=== PATIENT | female | born 1975 | race Caucasian/White ===

== ENCOUNTER 2019-02-09 20:51 | Emergency (ER) | payer SELFPAY ==
[2019-02-09 20:52] VITALS: BP 149/107; PULSE 108; RESP 18; TEMP 37.3; O2SAT 100
--- NOTE | 2019-02-09 20:59 | ED.NEUROSD ---
HPI - Neuro Symptoms/Deficit General Chief Complaint: Neuro Symptoms/Deficit Stated Complaint: Stroke Symptoms Time Seen by Provider: 02/09/19 20:57 Source: patient and EMS Mode of arrival: EMS Limitations: no limitations History of Present Illness HPI Narrative: 43F with history of autoimmune neurologic problems requiring hospitalizations and IVIG, also chronic inflammatory demyelinating polyneuropathy. Her last hospitalization was at [facility] earlier this year and she was admitted for 5 days of IVIG. Patient complains of a few weeks of gradually worsening symptoms per 48 hours of significant deterioration and now she can no longer ambulate is having trouble speaking. She typically has bilateral weakness, tingling but today her right arm and right leg are profoundly weak, this is classic for her prior exacerbations. She has had no injury nor any fever or chills. She denies recent upper respiratory infections such as runny nose, sore throat or cough Onset (ago): day(s) Location: speech, right arm and right leg History of same: Yes Severity: moderate Quality: weak, numb and tingling Relieving factors: none Exacerbating factors: none Context: gradual onset On Anticoagulants: No Associated symptoms: denies other symptoms Treatments Prior to Arrival: none Related Data Allergies Allergy/AdvReac Type Severity Reaction Status Date / Time No Known Drug Allergies Allergy Verified 02/09/19 20:54 Review of Systems Constitutional Denies chills, Denies fever(s), Denies lethargy and Reports weakness Eyes Denies change in vision, Denies eye discharge, Denies irritation and Denies loss of vision ENT Ears, Nose, Mouth, and Throat: Denies change in voice, Denies neck pain and Denies sore throat Cardiovascular Denies chest pain, Denies irregular heart rhythm, Denies lightheadedness, Denies palpitations, Denies dyspnea, Denies dyspnea on exertion and Denies orthopnea Respiratory Denies cough, Denies dyspnea, Denies dyspnea on exertion and Denies wheezing Gastrointestinal Gastrointestinal: Denies abdominal pain, Denies change in bowel habits, Denies diarrhea, Denies nausea and Denies vomiting Genitourinary Denies hematuria, Denies flank pain, Denies urinary incontinence and Denies urinary urgency Musculoskeletal Denies neck pain Integumentary/Breasts Denies pruritus, Denies erythema, Denies rash and Denies wounds Neurologic Denies confusion, Denies loss of vision and Reports weakness Psychiatric Denies anxiety, Denies confusion, Denies depression, Denies homicidal ideation and Denies suicidal ideation Endocrine Denies palpitations Hematologic/Lymphatic Denies easy bruising Allergic/Immunologic Denies wheezing [facility] Medical History (Updated 02/10/19 @ 04:51 by Cheko Ashby DO) Alcoholism (Acute) 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 HEAD: Atraumatic. Normocephalic. No temporal or scalp tenderness. EYES: Pupils equal round and reactive. Extraocular motions intact. No scleral icterus. No injection or drainage. ENT: Nose without bleeding, purulent drainage or septal hematoma. Throat without erythema, tonsillar hypertrophy or exudate. Uvula midline. Airway patent. NECK: Trachea midline. No JVD or lymphadenopathy. Supple, nontender, no meningeal signs. CARDIOVASCULAR: Regular rate and rhythm without murmurs, gallops, or rubs. RESPIRATORY: Clear to auscultation. Breath sounds equal bilaterally. No wheezes, rales, or rhonchi. GASTROINTESTINAL: Abdomen soft, non-tender, nondistended. No hepato-splenomegaly, or palpable masses. No guarding. EXTREMITIES: No clubbing, cyanosis, or edema. No joint tenderness, effusion, or edema noted. BACK: Nontender without deformity or crepitance. No flank tenderness. SKIN: No rash or erythema. Initial Vital Signs Initial Vital Signs: Vital Signs Temperature 99.1 F 02/09/19 20:52 Pulse Rate 108 H 02/09/19 20:52 Respiratory Rate 18 02/09/19 20:52 Blood Pressure 149/107 H 02/09/19 20:52 Pulse Oximetry 100 02/09/19 20:52 Scores NIH Stroke Scale Level of Conciousness: Alert, keenly responsive Ask month/age: Answers both questions correctly. Open/close eyes, close hand: Performs both tasks correctly Best gaze horizontal: Normal Visual ortiz: No visual loss Facial palsy: Partial paralysis, total or near total paralysis of lower face Left arm drift: No drift for full 10 sec Right arm drift: Drifts down, not to bed Left leg drift: No drift for full 10 sec Right leg drift: Drifts down, not to bed Limb ataxia: Absent Sensory on face/arms/legs: Mild to moderate sensory loss, can tell touch Best language: No aphasia, normal Dysarthria: Mild to mod,some slurring Extinction or inattention: No abnormality Total NIH Stroke scale score: 6 Course Orders Ordered: ED Orders 02/09/19 21:08 CT head/brain wo con Stat 02/09/19 21:35 C-Reactive Protein Quant Stat Complete Blood Count AUTO DIFF Stat Comprehensive Metabolic Panel Stat Erythrocyte Sedimentation Rate Stat Partial Thromboplastin Time Stat Prothrombin Time INR Stat 02/09/19 23:50 Ethanol (ETOH) Stat Discontinued Medications Sodium Chloride (Normal Saline 0.9%) 1,000 mls @ 1,000 mls/hr IV BOLUS ONE Stop: 02/09/19 22:05 Last Infusion: 02/10/19 00:14 Dose: 0 mls/hr Admin: 02/09/19 21:41 Dose: 1,000 mls/hr Reevaluation(s) Reevaluation #1: patient resting comfortably Consultations Consultation #1: call to [facility]. No consistant neuro coverage. Hospitalist not comfortable with transfer Consultation #2: call to Dr. Doe (Neuro at [facility]) happy to accept transfer. No recommendations for meds to administer here. Vital Signs - 8 hr 02/10/19 01:14 02/10/19 03:57 02/10/19 05:16 Temperature 99.1 F Pulse Rate 84 83 81 Respiratory Rate 16 Blood Pressure [Left Arm] 112/81 124/78 124/81 Pulse Oximetry 98 97 98 MDM - Neuro Symptoms/Deficit Lab Data Result diagrams: 02/09/19 21:35 02/09/19 21:35 Lab Results 02/09/19 02/09/19 02/09/19 Range/Units 21:35 21:35 21:35 WBC 4.6 (4.5-11.0) X10^3/uL RBC 4.24 (4.0-5.2) X10^6/uL Hgb 14.2 (12.0-16.0) g/dL Hct 42.6 (36-46) % MCV 100.5 H (80-100) fL MCH 33.5 (26-34) PG MCHC 33.3 (30-36) % RDW 12.9 (11.6-14.8) % Plt Count 270 (150-400) X10^3/uL Neut % (Auto) 45.5 L (50-75) % Lymph % (Auto) 41.0 H (25-40) % [place] % (Auto) 10.4 (3-14) % Eos % (Auto) 2.6 (2-4) % Baso % (Auto) 0.5 (0-2) % Neut # (Auto) 2100 (2857-6591) /uL Lymph # (Auto) 1900 (2678-3677) /uL [place] # (Auto) 500 (0-900) /uL Eos # (Auto) 100 (0-450) /uL Baso # (Auto) 0 (0-100) /uL ESR 6 (0-20) MM/HR PT 11.2 (10.1-12.7) SECONDS INR 1.0 (0.9-1.3) APTT 32 (26.4-36.2) SECONDS Sodium 143 (137-145) mmol/L Potassium 3.8 (3.4-5.1) mmol/L Chloride 106 (98-107) mmol/L Carbon Dioxide 25 (22-32) mmol/L BUN 7 (7-17) mg/dL Creatinine 0.70 (0.52-1.04) mg/dL Estimated GFR > 60.0 (>60) mL/min BUN/Creatinine Ratio 10.0 (6-22) Glucose 96 (70-100) mg/dL Calcium 8.3 L (8.4-10.2) mg/dL Total Bilirubin 0.2 (0.2-1.3) mg/dL AST 26 (14-36) IU/L ALT 23 (9-52) IU/L Alkaline Phosphatase 56 (38-126) U/L C-Reactive Protein < 0.5 (<1.0) mg/dL Total Protein 7.5 (6.3-8.2) g/dL Albumin 4.5 (3.5-5.0) g/dL Globulin 3.0 (1.7-4.1) g/dL Albumin/Globulin Ratio 1.5 (1.0-2.8) Ethyl Alcohol mg/dL 02/10/19 Range/Units 00:25 WBC (4.5-11.0) X10^3/uL RBC (4.0-5.2) X10^6/uL Hgb (12.0-16.0) g/dL Hct (36-46) % MCV (80-100) fL MCH (26-34) PG MCHC (30-36) % RDW (11.6-14.8) % Plt Count (150-400) X10^3/uL Neut % (Auto) (50-75) % Lymph % (Auto) (25-40) % [place] % (Auto) (3-14) % Eos % (Auto) (2-4) % Baso % (Auto) (0-2) % Neut # (Auto) (4484-3111) /uL Lymph # (Auto) (5207-1052) /uL [place] # (Auto) (0-900) /uL Eos # (Auto) (0-450) /uL Baso # (Auto) (0-100) /uL ESR (0-20) MM/HR PT (10.1-12.7) SECONDS INR (0.9-1.3) APTT (26.4-36.2) SECONDS Sodium (137-145) mmol/L Potassium (3.4-5.1) mmol/L Chloride (98-107) mmol/L Carbon Dioxide (22-32) mmol/L BUN (7-17) mg/dL Creatinine (0.52-1.04) mg/dL Estimated GFR (>60) mL/min BUN/Creatinine Ratio (6-22) Glucose (70-100) mg/dL Calcium (8.4-10.2) mg/dL Total Bilirubin (0.2-1.3) mg/dL AST (14-36) IU/L ALT (9-52) IU/L Alkaline Phosphatase (38-126) U/L C-Reactive Protein (<1.0) mg/dL Total Protein (6.3-8.2) g/dL Albumin (3.5-5.0) g/dL Globulin (1.7-4.1) g/dL Albumin/Globulin Ratio (1.0-2.8) Ethyl Alcohol 133 mg/dL MDM Narrative Medical decision making narrative: 43-year-old female with clumps plaques medical history and admitting diagnosis requiring medications and specialty not available at our hospital. She will require transfer for ongoing treatment and management of her illness Critical Care Time Critical Care Time: Yes Total Critical Care Time: 30 Attestation: The high probability of a clinically significant, sudden or life threatening deterioration of the [neurologic] system(s) required my full and direct attention, intervention and personal management. The aggregate critical care time was [30] minutes. This time is in addition to time spent performing reported procedures but includes the following: [x] Data Review and interpretation [x] Patient assessment and monitoring of vital signs [x] Documentation [x] Medication orders and management Discharge Plan Departure Patient Disposition: [facility] Clinical Impression: Chronic inflammatory demyelinating neuropathy
--- NOTE | 2019-02-09 21:08 | DI.CT.S_ITS ---
PROCEDURE: CT HEAD/BRAIN WO CON INDICATIONS: weakness, face, R side extremities TECHNIQUE: Noncontrast 4.5 mm thick angled axial sections acquired from the foramen magnum to the vertex, with coronal and sagittal reformats. For radiation dose reduction, the following was used: automated exposure control, adjustment of mA and/or kV according to patient size. COMPARISON: None. FINDINGS: Image quality: Excellent. CSF spaces: Basal cisterns are patent. No extra-axial fluid collections. Ventricles are normal in size and shape. Brain: No midline shift. No intracranial masses or hemorrhage. Larose-white matter interface is normal. Skull and face: Calvarium and visualized facial bones are intact, without suspicious lesions. Sinuses: Visualized sinuses and mastoids are clear. IMPRESSION: CT head without acute intracranial abnormalities. Dictated by: Ronak Landa M.D. on 02/09/2019 at 21:31 Approved by: Ronak Landa M.D. on 02/09/2019 at 21:32
[2019-02-09] MEDS: SODIUM CHLORIDE 0.9% 1,000 ML 1000 ML IV (21:41)
[2019-02-09 21:45] LABS: Add Manual Diff / Slide Review NO; Basophils Absolute Auto 0 /uL (0-100); Basophils Percent Auto 0.5 % (0-2); Eosinophils Absolute Auto 100 /uL (0-450); Eosinophils Percent Auto 2.6 % (2-4); Hematocrit 42.6 % (36-46); Hemoglobin 14.2 g/dL (12.0-16.0); Lymphocytes Absolute Auto 1900 /uL (1100-4500); Mean Corpuscular HGB Conc 33.3 % (30-36); Mean Corpuscular Hemoglobin 33.5 PG (26-34); Mean Corpuscular Volume 100.5 fL (80-100); Monocytes Absolute Auto 500 /uL (0-900); Monocytes Percent Auto 10.4 % (3-14); Neutrophils Absolute Auto 2100 /uL (1500-7000); Neutrophils Percent Auto 45.5 % (50-75); Platelet Count 270 X10^3/uL (150-400); Red Blood Cell Count 4.24 X10^6/uL (4.0-5.2); Red Cell Distribution Width 12.9 % (11.6-14.8); White Blood Cell Count 4.6 X10^3/uL (4.5-11.0)
[2019-02-09 21:51] LABS: Prothrombin Time 11.2 SECONDS (10.1-12.7)
[2019-02-09 21:54] LABS: PTT Partial Thromboplastin Tim 32 SECONDS (26.4-36.2)
[2019-02-09 21:58] LABS: Alanine Aminotransferase 23 IU/L (9-52); Albumin 4.5 g/dL (3.5-5.0); Albumin Globulin Ratio 1.5 (1.0-2.8); Alkaline Phosphatase 56 U/L (38-126); Aspartate Aminotransferase 26 IU/L (14-36); Bilirubin Total 0.2 mg/dL (0.2-1.3); Blood Urea Nitrogen 7 mg/dL (7-17); C-Reactive Protein Quant < 0.5 mg/dL (<1.0); Calcium 8.3 mg/dL (8.4-10.2); Carbon Dioxide 25 mmol/L (22-32); Chloride 106 mmol/L (98-107); Estimated Glomerular Filt Rate > 60.0 mL/min (>60); Glucose 96 mg/dL (70-100); HEMOLYSIS < 15 (0-50); Potassium 3.8 mmol/L (3.4-5.1); Sodium 143 mmol/L (137-145); Total Protein 7.5 g/dL (6.3-8.2)
[2019-02-09 22:03] LABS: Erythrocyte Sedimentation Rate 6 MM/HR (0-20)
[2019-02-10 00:43] LABS: Ethanol (ETOH) 133 mg/dL
--- NOTE | 2019-02-10 00:51 | ED_ITS ---
HPI - Neuro Symptoms/Deficit General Chief Complaint: Neuro Symptoms/Deficit Stated Complaint: Stroke Symptoms Time Seen by Provider: 02/09/19 20:57 Source: patient and EMS Mode of arrival: EMS Limitations: no limitations History of Present Illness HPI Narrative: 43F with history of autoimmune neurologic problems requiring hospitalizations and IVIG, also chronic inflammatory demyelinating polyneuropathy. Her last hospitalization was at [facility] earlier this year and she was admitted for 5 days of IVIG. Patient complains of a few weeks of gradually worsening symptoms per 48 hours of significant deterioration and now she can no longer ambulate is having trouble speaking. She typically has bilateral weakness, tingling but today her right arm and right leg are profoundly weak, this is classic for her prior exacerbations. She has had no injury nor any fever or chills. She denies recent upper respiratory infections such as runny nose, sore throat or cough Onset (ago): day(s) Location: speech, right arm and right leg History of same: Yes Severity: moderate Quality: weak, numb and tingling Relieving factors: none Exacerbating factors: none Context: gradual onset On Anticoagulants: No Associated symptoms: denies other symptoms Treatments Prior to Arrival: none Related Data Allergies Allergy/AdvReac Type Severity Reaction Status Date / Time No Known Drug Allergies Allergy Verified 02/09/19 20:54 Review of Systems Constitutional Denies chills, Denies fever(s), Denies lethargy and Reports weakness Eyes Denies change in vision, Denies eye discharge, Denies irritation and Denies loss of vision ENT Ears, Nose, Mouth, and Throat: Denies change in voice, Denies neck pain and Denies sore throat Cardiovascular Denies chest pain, Denies irregular heart rhythm, Denies lightheadedness, Denies palpitations, Denies dyspnea, Denies dyspnea on exertion and Denies orthopnea Respiratory Denies cough, Denies dyspnea, Denies dyspnea on exertion and Denies wheezing Gastrointestinal Gastrointestinal: Denies abdominal pain, Denies change in bowel habits, Denies diarrhea, Denies nausea and Denies vomiting Genitourinary Denies hematuria, Denies flank pain, Denies urinary incontinence and Denies urinary urgency Musculoskeletal Denies neck pain Integumentary/Breasts Denies pruritus, Denies erythema, Denies rash and Denies wounds Neurologic Denies confusion, Denies loss of vision and Reports weakness Psychiatric Denies anxiety, Denies confusion, Denies depression, Denies homicidal ideation and Denies suicidal ideation Endocrine Denies palpitations Hematologic/Lymphatic Denies easy bruising Allergic/Immunologic Denies wheezing [facility] Medical History (Updated 02/10/19 @ 04:51 by Cheko Ashby DO) Alcoholism (Acute) 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 HEAD: Atraumatic. Normocephalic. No temporal or scalp tenderness. EYES: Pupils equal round and reactive. Extraocular motions intact. No scleral icterus. No injection or drainage. ENT: Nose without bleeding, purulent drainage or septal hematoma. Throat without erythema, tonsillar hypertrophy or exudate. Uvula midline. Airway patent. NECK: Trachea midline. No JVD or lymphadenopathy. Supple, nontender, no me ningeal signs. CARDIOVASCULAR: Regular rate and rhythm without murmurs, gallops, or rubs. RESPIRATORY: Clear to auscultation. Breath sounds equal bilaterally. No wheezes, rales, or rhonchi. GASTROINTESTINAL: Abdomen soft, non-tender, nondistended. No hepato- splenomegaly, or palpable masses. No guarding. EXTREMITIES: No clubbing, cyanosis, or edema. No joint tenderness, effusion, or edema noted. BACK: Nontender without deformity or crepitance. No flank tenderness. SKIN: No rash or erythema. Initial Vital Signs Initial Vital Signs: Vital Signs Temperature 99.1 F 02/09/19 20:52 Pulse Rate 108 H 02/09/19 20:52 Respiratory Rate 18 02/09/19 20:52 Blood Pressure 149/107 H 02/09/19 20:52 Pulse Oximetry 100 02/09/19 20:52 Scores NIH Stroke Scale Level of Conciousness: Alert, keenly responsive Ask month/age: Answers both questions correctly. Open/close eyes, close hand: Performs both tasks correctly Best gaze horizontal: Normal Visual ortiz: No visual loss Facial palsy: Partial paralysis, total or near total paralysis of lower face Left arm drift: No drift for full 10 sec Right arm drift: Drifts down, not to bed Left leg drift: No drift for full 10 sec Right leg drift: Drifts down, not to bed Limb ataxia: Absent Sensory on face/arms/legs: Mild to moderate sensory loss, can tell touch Best language: No aphasia, normal Dysarthria: Mild to mod,some slurring Extinction or inattention: No abnormality Total NIH Stroke scale score: 6 Course Orders Ordered: ED Orders 02/09/19 21:08 CT head/brain wo con Stat 02/09/19 21:35 C-Reactive Protein Quant Stat Complete Blood Count AUTO DIFF Stat Comprehensive Metabolic Panel Stat Erythrocyte Sedimentation Rate Stat Partial Thromboplastin Time Stat Prothrombin Time INR Stat 02/09/19 23:50 Ethanol (ETOH) Stat Discontinued Medications Sodium Chloride (Normal Saline 0.9%) 1,000 mls @ 1,000 mls/hr IV BOLUS ONE Stop: 02/09/19 22:05 Last Infusion: 02/10/19 00:14 Dose: 0 mls/hr Admin: 02/09/19 21:41 Dose: 1,000 mls/hr Reevaluation(s) Reevaluation #1: patient resting comfortably Consultations Consultation #1: call to [facility]. No consistant neuro coverage. Hospitalist not comfortable with transfer Consultation #2: call to Dr. Doe (Neuro at [facility]) happy to accept transfer. No recommendations for meds to administer here. Vital Signs - 8 hr 02/10/19 01:14 02/10/19 03:57 02/10/19 05:16 Temperature 99.1 F Pulse Rate 84 83 81 Respiratory Rate 16 Blood Pressure [Left Arm] 112/81 124/78 124/81 Pulse Oximetry 98 97 98 MDM - Neuro Symptoms/Deficit Lab Data Result diagrams: 02/09/19 21:35 02/09/19 21:35 Lab Results 02/09/19 02/09/19 02/09/19 Range/Units 21:35 21:35 21:35 WBC 4.6 (4.5-11.0) X10^3/uL RBC 4.24 (4.0-5.2) X10^6/uL Hgb 14.2 (12.0-16.0) g/dL Hct 42.6 (36-46) % MCV 100.5 H (80-100) fL MCH 33.5 (26-34) PG MCHC 33.3 (30-36) % RDW 12.9 (11.6-14.8) % Plt Count 270 (150-400) X10^3/uL Neut % (Auto) 45.5 L (50-75) % Lymph % (Auto) 41.0 H (25-40) % [place] % (Auto) 10.4 (3-14) % Eos % (Auto) 2.6 (2-4) % Baso % (Auto) 0.5 (0-2) % Neut # (Auto) 2100 (6588-5633) /uL Lymph # (Auto) 1900 (2670-3152) /uL [place] # (Auto) 500 (0-900) /uL Eos # (Auto) 100 (0-450) /uL Baso # (Auto) 0 (0-100) /uL ESR 6 (0-20) MM/HR PT 11.2 (10.1-12.7) SECONDS INR 1.0 (0.9-1.3) APTT 32 (26.4-36.2) SECONDS Sodium 143 (137-145) mmol/L Potassium 3.8 (3.4-5.1) mmol/L Chloride 106 (98-107) mmol/L Carbon Dioxide 25 (22-32) mmol/L BUN 7 (7-17) mg/dL Creatinine 0.70 (0.52-1.04) mg/dL Estimated GFR > 60.0 (>60) mL/min BUN/Creatinine Ratio 10.0 (6-22) Glucose 96 (70-100) mg/dL Calcium 8.3 L (8.4-10.2) mg/dL Total Bilirubin 0.2 (0.2-1.3) mg/dL AST 26 (14-36) IU/L ALT 23 (9-52) IU/L Alkaline Phosphatase 56 (38-126) U/L C-Reactive Protein < 0.5 (<1.0) mg/dL Total Protein 7.5 (6.3-8.2) g/dL Albumin 4.5 (3.5-5.0) g/dL Globulin 3.0 (1.7-4.1) g/dL Albumin/Globulin Ratio 1.5 (1.0-2.8) Ethyl Alcohol mg/dL 02/10/19 Range/Units 00:25 WBC (4.5-11.0) X10^3/uL RBC (4.0-5.2) X10^6/uL Hgb (12.0-16.0) g/dL Hct (36-46) % MCV (80-100) fL MCH (26-34) PG MCHC (30-36) % RDW (11.6-14.8) % Plt Count (150-400) X10^3/uL Neut % (Auto) (50-75) % Lymph % (Auto) (25-40) % [place] % (Auto) (3-14) % Eos % (Auto) (2-4) % Baso % (Auto) (0-2) % Neut # (Auto) (9117-8747) /uL Lymph # (Auto) (7938-9413) /uL [place] # (Auto) (0-900) /uL Eos # (Auto) (0-450) /uL Baso # (Auto) (0-100) /uL ESR (0-20) MM/HR PT (10.1-12.7) SECONDS INR (0.9-1.3) APTT (26.4-36.2) SECONDS Sodium (137-145) mmol/L Potassium (3.4-5.1) mmol/L Chloride (98-107) mmol/L Carbon Dioxide (22-32) mmol/L BUN (7-17) mg/dL Creatinine (0.52-1.04) mg/dL Estimated GFR (>60) mL/min BUN/Creatinine Ratio (6-22) Glucose (70-100) mg/dL Calcium (8.4-10.2) mg/dL Total Bilirubin (0.2-1.3) mg/dL AST (14-36) IU/L ALT (9-52) IU/L Alkaline Phosphatase (38-126) U/L C-Reactive Protein (<1.0) mg/dL Total Protein (6.3-8.2) g/dL Albumin (3.5-5.0) g/dL Globulin (1.7-4.1) g/dL Albumin/Globulin Ratio (1.0-2.8) Ethyl Alcohol 133 mg/dL MDM Narrative Medical decision making narrative: 43-year-old female with clumps plaques medical history and admitting diagnosis requiring medications and specialty not available at our hospital. She will require transfer for ongoing treatment and management of her illness Critical Care Time Critical Care Time: Yes Total Critical Care Time: 30 Attestation: The high probability of a clinically significant, sudden or life threatening deterioration of the [neurologic] system(s) required my full and direct attention, intervention and personal management. The aggregate critical care time was [30] minutes. This time is in addition to time spent performing reported procedures but includes the following: [x] Data Review and interpretation [x] Patient assessment and monitoring of vital signs [x] Documentation [x] Medication orders and management Discharge Plan Departure Patient Disposition: [facility] Clinical Impression: Chronic inflammatory demyelinating neuropathy
[2019-02-10 01:14] VITALS: BP 112/81; PULSE 84; RESP 16; TEMP 37.3; O2SAT 98
[2019-02-10 03:57] VITALS: BP 124/78; PULSE 83; O2SAT 97
[2019-02-10 05:16] VITALS: BP 124/81; PULSE 81; O2SAT 98
[2019-02-10 06:36] VITALS: BP 135/84; PULSE 89; RESP 16; O2SAT 97
[2019-02-10 06:38] LABS: RBC Urine None Seen (0-5/HPF)
[2019-02-10 06:43] LABS: Appearance Urine UA SL CLOUDY; Bilirubin Urine UA NEGATIVE (NEGATIVE); Color Urine UA YELLOW; Glucose Urine UA NEGATIVE (Negative); Ketones Urine UA TRACE (NEGATIVE); Leukocyte Esterase Urine UA NEGATIVE (NEGATIVE); Nitrite Urine UA POSITIVE (Negative); Occult Blood Urine UA TRACE-LYSED (Negative); Protein Urine UA NEGATIVE (Negative); Specific Gravity Urine UA >=1.030 (1.000-1.035); Urobilinogen Urine UA 0.2 E.U./dL (0.2); pH Urine UA 5.5 (4.5-8.0)
[2019-02-10 06:47] LABS: Urine Amphetamines Negative (Negative); Urine Barbiturates Negative (Negative); Urine Benzodiazepines Negative (Negative); Urine Cocaine Positive (Negative); Urine MDMA Negative (Negative); Urine Methadone Negative (Negative); Urine Methamphetamines Negative (Negative); Urine Morphine/Opi cutoff 2000 Negative (Negative); Urine Oxycodone Negative (Negative); Urine Phencyclidine Negative (Negative); Urine Tetrahydrocannabinol Negative (Negative); Urine Tricyclic Antidepressant Negative (Negative)
[2019-02-10 06:49] LABS: Bacteria Urine Many (>30); Culture Indicated Urine Specimen Cultured; WBC Urine 0-1/HPF (0-5/HPF)
[2019-02-10 09:30] VITALS: BP 144/89; PULSE 87; RESP 14; O2SAT 98
[2019-02-10 10:58] VITALS: BP 132/80; PULSE 72; RESP 12; O2SAT 98
== END 2019-02-10 10:59 | disposition short-term general hospital (02) ==
PROVIDERS: Emergency Provider Emergency Medicine
DX: G61.81 Chronic inflammatory demyelinating polyneuritis (principal); R47.89 Other speech disturbances
CPT/HCPCS: 36415; 36591; 70450; 80053; 80305; 80320; 81001; 85025; 85610; 85651; 85730; 86140; 87077; 87086; 87186; 96360; 96361; 99284

== ENCOUNTER 2019-07-13 01:05 | Emergency (ER) | payer SELFPAY ==
[2019-07-13 01:10] VITALS: BP 140/85; PULSE 85; RESP 22; TEMP 36.8; O2SAT 99
--- NOTE | 2019-07-13 01:19 | DI.RAD.S_ITS ---
PROCEDURE: XR SHOULDER LT 1V INDICATIONS: Deformity after trauma - left shoulder TECHNIQUE: 1 views of the shoulder were acquired. COMPARISON: None. FINDINGS: Bones: There is a comminuted fracture evident involving the greater tuberosity of the humeral head with inferior (and also likely anterior) dislocation of the humeral head. The inferior glenoid is not adequately evaluated. No additional fractures are appreciated. No suspicious osseous lesions are evident. Soft tissues: No suspicious soft tissue calcifications. IMPRESSION: Inferior (and also likely anterior) dislocation of the humeral head with associated comminuted greater tuberosity fracture. CT would be helpful to exclude the possibility of a bony [place] fracture of the glenoid. Note: The preliminary ED physician interpretation and the final report are concordant. Dictated by: Ludwin Heart M.D. on 07/13/2019 at 7:17 Approved by: Ludwin Heart M.D. on 07/13/2019 at 7:18
--- NOTE | 2019-07-13 01:21 | DI.CT.S_ITS ---
PROCEDURE: CT HEAD/BRAIN WO CON INDICATIONS: Trauma left-sided facial wounds TECHNIQUE: Noncontrast 4.5 mm thick angled axial sections acquired from the foramen magnum to the vertex, with coronal and sagittal reformats. For radiation dose reduction, the following was used: automated exposure control, adjustment of mA and/or kV according to patient size. COMPARISON: [facility], CT, CT FACIAL BONES WO CON, 07/13/2019, 1:32. [facility], CT, CT BRAIN WO CON, 06/26/2017, 23:05. FINDINGS: Image quality: Excellent. CSF spaces: Basal cisterns are patent. No extra-axial fluid collections. A small area of increased attenuation is identified within the subarachnoid region along the inferior margin of the left frontal lobe (image 17, series 4 and image 29, series 2). Ventricles are normal in size and shape. Brain: No midline shift. No intracranial masses or hemorrhage. Larose-white matter interface is normal. Skull and face: Calvarium and visualized facial bones are intact, without suspicious lesions. A large area of soft tissue swelling is identified overlying the left forehead and periorbital region. The fracture involving the lateral wall of the left orbit is present. There also appears to be a subtle fracture involving the left temporal bone near the posterior margin of the zygomatic arch. Otherwise, calvarium and imaged facial bones are intact. Sinuses: Visualized sinuses and mastoids are clear. IMPRESSION: 1. Probable small subarachnoid hemorrhage along the inferior left frontal lobe. 2. Prominent soft tissue swelling overlying the left face. 3. Comminuted lateral orbital wall fracture on the left with an associated additional left temporal bone fracture. Note: The preliminary report provided by [facility]. is concordant with the final report. Dictated by: Ludwin Heart M.D. on 07/13/2019 at 7:20 Approved by: Ludwin Heart M.D. on 07/13/2019 at 7:25
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
--- NOTE | 2019-07-13 01:21 | DI.CT.S_ITS ---
PROCEDURE: CT CERVICAL SPINE WO CON INDICATIONS: Trauma TECHNIQUE: Noncontrast 3 mm thick sections acquired from the skull base to the T4 level. Sagittal and coronal reformats were then constructed. For radiation dose reduction, the following was used: automated exposure control, adjustment of mA and/or kV according to patient size. COMPARISON: [facility], CT, CT FACE WO CON, 06/26/2017, 23:05. FINDINGS: Image quality: Diagnostic. Bones: The craniocervical, atlantoaxial, and cervicothoracic junctions are well-maintained. The odontoid is intact. There is no displaced fracture or dislocation of the cervical spine. No suspicious osseous lesions are identified. Normal bony alignment of the cervical spine is present. There mild degenerative changes of the cervical spine with areas of mild disc height loss and possible early facet arthrosis. No spondylolisthesis is evident. (Incidental note is made of a fracture involving the left orbital wall and a subtle fracture involving the temporal bone along the posterior aspect of the zygomatic arch that extends into the temporal mandibular joint. Soft tissues: Prevertebral soft tissues are normal in thickness. No paravertebral hematomas. No apical pneumothoraces. IMPRESSION: 1. No acute fracture of the cervical spine. 2. Mild degenerative changes of the cervical spine. Note: The preliminary report provided by [facility] is concordant with the final report. Dictated by: Ludwin Heart M.D. on 07/13/2019 at 7:29 Approved by: Ludwin Heart M.D. on 07/13/2019 at 7:33
--- NOTE | 2019-07-13 01:22 | DI.RAD.S_ITS ---
PROCEDURE: XR CHEST 1V INDICATIONS: Trauma TECHNIQUE: One view of the chest was acquired. COMPARISON: None. FINDINGS: Surgical changes and devices: None. Lungs and pleura: Lungs are clear. No pleural effusions or pneumothorax. Mediastinum: Mediastinal contours appear normal. Heart size is normal. Bones and chest wall: No suspicious bony lesions. There is a comminuted a fracture involving the greater tuberosity of the humeral head with anterior dislocation of the humeral head with respect to the glenoid. Overlying soft tissues appear unremarkable. IMPRESSION: 1. No acute cardiopulmonary process. 2. Comminuted fracture of the left humeral head. Dictated by: Ludwin Heart M.D. on 07/13/2019 at 7:18 Approved by: Ludwin Heart M.D. on 07/13/2019 at 7:19
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
[2019-07-13 01:35] LABS: Prothrombin Time 11.5 SECONDS (10.1-12.7)
[2019-07-13 01:38] LABS: PTT Partial Thromboplastin Tim 31 SECONDS (26.4-36.2)
[2019-07-13 01:42] LABS: Pregnancy Test Serum,Qual Negative (Negative)
[2019-07-13 01:43] LABS: Alanine Aminotransferase 20 IU/L (9-52); Albumin 4.5 g/dL (3.5-5.0); Albumin Globulin Ratio 1.6 (1.0-2.8); Alkaline Phosphatase 44 U/L (38-126); Aspartate Aminotransferase 33 IU/L (14-36); BUN Creatinine Ratio 12.9 (6-22); Bilirubin Total 0.4 mg/dL (0.2-1.3); Blood Urea Nitrogen 9 mg/dL (7-17); Calcium 8.8 mg/dL (8.4-10.2); Carbon Dioxide 25 mmol/L (22-32); Chloride 103 mmol/L (98-107); Estimated Glomerular Filt Rate > 60.0 mL/min (>60); Globulin 2.8 g/dL (1.7-4.1); Glucose 99 mg/dL (70-100); HEMOLYSIS < 15 (0-50); Lipase 113 U/L (23-300); Potassium 3.3 mmol/L (3.4-5.1); Sodium 141 mmol/L (137-145); Total Protein 7.3 g/dL (6.3-8.2)
[2019-07-13 01:44] LABS: Add Manual Diff / Slide Review NO; Basophils Absolute Auto 100 /uL (0-100); Basophils Percent Auto 0.7 % (0-2); Eosinophils Absolute Auto 100 /uL (0-450); Eosinophils Percent Auto 1.6 % (2-4); Hematocrit 42.2 % (36-46); Hemoglobin 14.5 g/dL (12.0-16.0); Lymphocytes Absolute Auto 3600 /uL (1100-4500); Lymphocytes Percent Auto 43.6 % (25-40); Mean Corpuscular HGB Conc 34.3 % (30-36); Monocytes Absolute Auto 600 /uL (0-900); Monocytes Percent Auto 6.7 % (3-14); Neutrophils Absolute Auto 3900 /uL (1500-7000); Neutrophils Percent Auto 47.4 % (50-75); Platelet Count 315 X10^3/uL (150-400); Red Blood Cell Count 4.14 X10^6/uL (4.0-5.2); Red Cell Distribution Width 13.1 % (11.6-14.8); White Blood Cell Count 8.3 X10^3/uL (4.5-11.0)
[2019-07-13 01:51] LABS: Ethanol (ETOH) 340 mg/dL
--- NOTE | 2019-07-13 01:52 | DI.RAD.S_ITS ---
PROCEDURE: XR SHOULDER LT MIN 2V INDICATIONS: post reduction left shoulder TECHNIQUE: 3 views of the shoulder were acquired. COMPARISON: None. FINDINGS: Bones: Improved alignment of the left shoulder is identified, which now appears to be in anatomic alignment. The previously seen dislocation has been reduced. There continues to be a fracture involving the greater tuberosity of the humeral head. No definitive fracture of the glenoid is appreciated. However, in the inferior glenoid is not well evaluated on this study. No new fractures are evident. Soft tissues: No suspicious soft tissue calcifications. IMPRESSION: The left shoulder has been reduced. There continues to be a greater tuberosity fracture. Note: The preliminary ED physician interpretation and the final report are concordant. Dictated by: Ludwin Heart M.D. on 07/13/2019 at 7:50 Approved by: Ludwin Heart M.D. on 07/13/2019 at 7:51
[2019-07-13] MEDS: TET,DIPH,PERTUSS(ACELL),VAC/PF 0.5 ML SYRINGE IM (05:19)
[2019-07-13] MEDS: MORPHINE 4 MG/ML INJ IV (06:09)
[2019-07-13 06:44] VITALS: BP 140/85; PULSE 85; RESP 22; TEMP 36.8; O2SAT 99
== END 2019-07-13 06:31 | disposition short-term general hospital (02) ==
PROVIDERS: Emergency Provider Emergency Medicine
DX: S02.19XA Other fracture of base of skull, initial encounter for closed fracture (principal); S02.80XA Fracture of other specified skull and facial bones, unspecified side, initial encounter for closed fracture; S43.015A Anterior dislocation of left humerus, initial encounter; S05.92XA Unspecified injury of left eye and orbit, initial encounter; F10.929 Alcohol use, unspecified with intoxication, unspecified; Z23 Encounter for immunization; V87.8XXA Person injured in other specified noncollision transport accidents involving motor vehicle (traffic), initial encounter
CPT/HCPCS: 12011; 23605; 36415; 70450; 70486; 71045; 72125; 73020; 73030; 74177; 80053; 80320; 83690; 84703; 85025; 85610; 85730; 86850; 86900; 86901; 90471; 96374; 99283; 99291; 99292; 90715; G0390; J2270